=== PATIENT | male | born 1975 | race Hispanic/Latino ===

== ENCOUNTER 2024-11-25 20:12 | Emergency (ER) | payer SELFPAY ==
[2024-11-25 20:53] LABS: Absolute Eosinophils 0.2 K/uL (0-0.5); Absolute Lymphocytes (CBC) 2.3 K/uL (0.7-4.9); Absolute Monocytes 0.5 K/uL (0.1-1.3); Absolute Neutrophil 4.1 K/uL (1.8-8.0); Basophils % 0.6 % (0-1.3); Eosinophils % 2.2 % (0-4.4); Hematocrit 45.3 % (39.6-49.0); Hemoglobin 15.2 g/dL (13.6-17.9); Lymphocytes % 33.1 % (15.3-44.8); MCH 31.1 pg (27.0-35.0); MCHC 33.6 g/dL (32.0-36.0); MCV 92.5 fL (80-100); MPV 7.8 fL (7.6-11.3); Monocytes % 6.7 % (3.3-12.3); Neutrophils % 57.4 % (41.7-73.7); Nucleated Red Blood Cells % 0.1 % (0-0); Platelets 247 thou/uL (152-406); Red Cell Distribution Width 14.4 % (12.1-15.2)
[2024-11-25 20:59] LABS: PT Prothrombin Time 11.2 SECONDS (9.4-12.5)
[2024-11-25] MEDS ORDERED: KETOROLAC 30 MG/ML INJ ONE (21:04)
[2024-11-25] MEDS ORDERED: DIPHENHYDRAMINE 50 MG/ML VIAL ONE (21:04)
[2024-11-25] MEDS ORDERED: METOCLOPRAMIDE 10 MG/2mL INJ ONE (21:04)
[2024-11-25] MEDS ORDERED: MORPHINE 4 MG/ML SYR ONE (21:04)
--- NOTE | 2024-11-25 21:13 | RAD REPORT ---
EXAMINATION: ONE VIEW CHEST XR CLINICAL INDICATION: CHEST PAIN TECHNIQUE: Frontal chest projection is submitted. Examination is limited by patient positioning and t echnique. COMPARISON: No prior exam. FINDINGS: The lungs are well inflated and clear. The heart is normal in size. No displaced fractures identified . IMPRESSION: No acute intrathoracic abnormalities.
[2024-11-25 21:24] LABS: ALT/SGPT 65 U/L (16-61); AST/SGOT 23 U/L (15-37); Albumin 3.5 g/dL (3.4-5.0); Albumin/Globulin Ratio 1.1 (1.1-1.8); Alkaline Phosphatase 68 U/L (45-117); Anion Gap 7.9 mEq/L (5.0-15.0); BUN Blood Urea Nitrogen 17 mg/dL (7-18); Bicarbonate 26 mEq/L (21-32); Bilirubin Total 0.3 mg/dL (0.2-1.0); Globulin 3.3 g/dL (2.3-3.5); Glomerular Filtration Rate 101 ml/min (=/>90); Glucose Level 112 mg/dL (74-106); Magnesium 2.4 mg/dL (1.6-2.4); NT PRO-BNP 8 pg/mL (<125); Potassium 3.9 mEq/L (3.5-5.1); Protein, Total 6.8 g/dL (6.4-8.2); Sodium Level 138 mEq/L (136-145); Troponin High Sensitivity 10.2 pg/mL (<58.9)
[2024-11-25 21:43] LABS: Bilirubin Direct < 0.2 mg/dL (0-0.2); Bilirubin Indirect, Calculated 0.1 mg/dL (0.2-0.8)
--- NOTE | 2024-11-25 21:48 | RAD REPORT ---
EXAMINATION: MRI BRAIN WITHOUT CONTRAST CLINICAL INDICATION: DIZZINESS TECHNIQUE: Multiplanar multisequence MR images of the brain were obtained without intravenous contras t. Unless otherwise specified, incidental findings do not require dedicated imaging follow-up. COMPARISON: No prior exam. FINDINGS: INTRACRANIAL: Diffusion-weighted images show no acute or early subacute infarction. No abnormal brain parenchymal signal. The ventricles are normal in size and morphology. No augmented susceptibility. There is no mass effect or midline shift. No abnormal extraaxial fluid collection. VASCULATURE: Normal signal voids in the larger intracranial arteries and dural venous sinuses. SINUSES: 2 cm mucous retention cyst or polyp inferior right maxillary antrum. BONE: The marrow signal pattern is within normal limits. IMPRESSION: Negative for acutre CVA or other acute intracranial finding.
[2024-11-25] MEDS ORDERED: NA CHLORIDE 0.9% 1,000 ML ONE (22:03)
[2024-11-25] MEDS ORDERED: ACETAMINOPHEN 500 MG TAB ONE (22:03)
--- NOTE | 2024-11-26 00:33 | ER ---
Nurse's Notes [facility] Name: Kaushik Villalpando Age: 49 yrs Sex: Male : 1975 Arrival Date: 11/25/2024 Time: 20:12 Bed 15 Private MD: Diagnosis: Complicated headache syndromes;Elevated Blood pressure reading Presentation: 11/25 20:24 Chief complaint: Patient states: I am having headache and, numbness, weakness, and jb4 tingling of both arms and legs. It is worse in the right arm. It all started at 4am on 11/24. Coronavirus screen: At this time, the client does not indicate any symptoms associated with coronavirus-19. Ebola Screen: No symptoms or risks identified at this time. Initial Sepsis Screen: Does the patient meet any 2 criteria? No. Patient's initial sepsis screen is negative. Does the patient have a suspected source of infection? No. Patient's initial sepsis screen is negative. Risk Assessment: Do you want to hurt yourself or someone else? Patient reports no desire to harm self or others. Onset of symptoms was November 24, 2024. Transition of care: patient was not received from another setting of care. 20:24 Method Of Arrival: Ambulatory jb4 20:24 Acuity: JACOB 2 jb4 Historical: - Allergies: 20:26 No Known Allergies; jb4 - PMHx: 20:26 None; jb4 - PSHx: 20:26 None; jb4 - Immunization history:: Adult Immunizations not up to date. - Infectious Disease History:: Denies. - Social history:: Smoking status: Patient denies any tobacco usage or history of. Patient uses alcohol, occasionally. - Family history:: not pertinent. Screenin:45 [facility] ED Fall Risk Assessment (Adult) History of falling in the last 3 months, rg5 including since admission No falls in past 3 months (0 pts) Confusion or Disorientation No (0 pts) Intoxicated or Sedated No (0 pts) Impaired Gait No (0 pts) Mobility Assist Device Used No (0 pt) Altered Elimination No (0 pt) Score/Fall Risk Level 0 - 2 = Low Risk Oriented to surroundings, Maintained a safe environment, Hourly rounding (assess needs \T\ fall precautionary measures) done. 20:45 Abuse screen: Denies threats or abuse. Nutritional screening: No deficits noted. rg5 Tuberculosis screening: No symptoms or risk factors identified. Assessment: 20:45 General: Appears in no apparent distress. comfortable, Behavior is calm, cooperative, rg5 appropriate for age. 20:45 Pain: Complains of pain in head Pain does not radiate. Pain currently is 9 out of 10 on rg5 a pain scale. Quality of pain is described as aching, Pain began 2-3 days ago. Neuro: Reports blurred vision dizziness. Cardiovascular: Denies chest pain. Respiratory: Airway is patent Trachea midline Respiratory effort is even, unlabored, Respiratory pattern is regular, symmetrical. GI: Abdomen is round non-distended, Abd is soft and non tender. : No signs and/or symptoms were reported regarding the genitourinary system. EENT: Reports blurred vision. Derm: Skin is intact, Skin is dry, Skin is normal, Skin temperature is warm. Musculoskeletal: Circulation, motion, and sensation intact. Range of motion: intact in all extremities, Reports weakness in right arm and right leg. 21:35 Reassessment: No changes from previously documented assessment. Patient and/or family rg5 updated on plan of care and expected duration. Pain level reassessed. Patient is alert, oriented x 3, equal unlabored respirations, skin warm/dry/pink. 22:30 Reassessment: Patient and/or family updated on plan of care and expected duration. Pain rg5 level reassessed. Patient is alert, oriented x 3, equal unlabored respirations, skin warm/dry/pink. 23:25 Reassessment: Patient and/or family updated on plan of care and expected duration. Pain rg5 level reassessed. Patient is alert, oriented x 3, equal unlabored respirations, skin warm/dry/pink. Patient states feeling better. Patient states symptoms have improved. 11/26 00:30 Reassessment: Patient and/or family updated on plan of care and expected duration. Pain rg5 level reassessed. Patient is alert, oriented x 3, equal unlabored respirations, skin warm/dry/pink. Patient states feeling better. Patient states symptoms have improved. Vital Signs: 11/25 20:24 Weight 99.79 kg; Height 5 ft. 8 in. ; Pain 10/10; jb4 20:33 BP 157 / 100; Pulse 58; Resp 18; Temp 98.3; Pulse Ox 97% on R/A; Weight 95.71 kg; rg5 Height 5 ft. 8 in. ; Pain 8/10; 21:41 BP 136 / 89; Pulse 63; Resp 17; Pulse Ox 99% on R/A; Pain 9/10; rg5 22:00 BP 111 / 80; Pulse 60; Resp 17; Pulse Ox 96% on R/A; Pain 3/10; rg5 23:00 BP 115 / 80; Pulse 57; Resp 18; Pulse Ox 98% ; Pain 3/10; rg5 11/26 00:27 BP 116 / 80; Pulse 55; Resp 18; Pulse Ox 98% on R/A; Pain 0/10; rg5 11/25 20:33 Body Mass Index 32.08 (95.71 kg, 172.72 cm) rg5 11/25 20:24 Pain Scale: Adult jb4 20:33 Pain Scale: Adult rg5 21:41 Pain Scale: Adult rg5 22:00 Pain Scale: Adult rg5 23:00 Pain Scale: Adult rg5 11/26 00:27 Pain Scale: Adult rg5 Durant Coma Score: 11/25 22:21 Eye Response: spontaneous(4). Motor Response: obeys commands(6). Verbal Response: sp4 oriented(5). Total: 15. NIH Stroke Scale Scores: 21:29 NIHSS Score: 0 sp4 ED Course: 20:14 Patient arrived in ED. jj6 20:16 Jorge Conner, RN is Primary Nurse. rg5 20:18 Bob French MD is Attending Physician. sp4 20:26 Triage completed. jb4 20:26 Arm band placed on right wrist. jb4 20:37 EKG done, by ED staff, reviewed by Bob French MD. oe 20:45 Patient has correct armband on for positive identification. Placed in gown. Bed in low rg5 position. Call light in reach. Side rails up X 1. Client placed on continuous cardiac and pulse oximetry monitoring. NIBP monitoring applied. translator and interpreter on. Pulse ox on. Door closed. Noise minimized. Warm blanket given. Verbal reassurance given. 20:45 No provider procedures requiring assistance completed. Inserted saline lock: 20 gauge rg5 in right antecubital area, using aseptic technique. Blood collected. Flushed with 10 mL NS. Patient maintains SpO2 saturation greater than 95% on room air. 21:08 XRAY Chest (1 view) In Process Unspecified. EDMS 21:29 MRI - Brain Wo Cont In Process Unspecified. EDMS 11/26 00:32 Misael Carbajal MD is Referral Physician. sp4 00:46 Provided Education on: post er care. rg5 00:46 IV discontinued, bleeding controlled, No redness/swelling at site. Pressure dressing rg5 applied. Administered Medications: 11/25 21:40 Drug: metoCLOPramide IVP 10 mg IVP once; over 1 to 2 minutes Route: IVP; Site: right rg5 antecubital; 22:03 Follow up: Response: No adverse reaction; Pain is decreased rg5 21:40 Drug: Ketorolac IVP 30 mg IVP once Route: IVP; Site: right antecubital; rg5 22:03 Follow up: Response: No adverse reaction; Pain is decreased rg5 21:40 Drug: diphenhydrAMINE IVP 25 mg IVP once Route: IVP; Site: right antecubital; rg5 22:03 Follow up: Response: No adverse reaction rg5 21:41 Drug: morphine IVP or IV 4 mg IVP once over 4 mins Route: IVP; Infused Over: 4 mins; rg5 Site: right antecubital; 22:03 Follow up: Response: No adverse reaction; Pain is decreased rg5 22:10 Drug: NS 0.9% IV 1000 ml IV at 1000 ml once; to be given as a bolus over 60 minutes rg5 Route: IV; Rate: 1000 ml; Site: right antecubital; 11/26 00:00 Follow up: IV Status: Completed infusion; IV Intake: 1000ml rg5 11/25 22:10 Drug: Acetaminophen PO 1000 mg PO once Route: PO; rg5 22:39 Follow up: Response: No adverse reaction; Pain is decreased rg5 Medication: 20:45 VIS not applicable for this client. rg5 Intake: 11/26 00:00 IV: 1000ml; Total: 1000ml. rg5 Outcome: 00:33 Discharge ordered by . sp4 00:52 Discharged to home ambulatory, rg5 00:52 Condition: stable 00:52 Discharge instructions given to patient, Instructed on discharge instructions, follow up and referral plans. Demonstrated understanding of instructions, follow-up care, medications, Prescriptions given X 1, 00:52 Patient left the ED. rg5 NIH Stroke Scale - NIH Stroke Score Date: 11/25/2024 Time: 21:29 Total Score = 0 10. Dysarthria (speech clarity - read or repeat words) - 0(Normal) 11. Extinction and Inattention (visual/tactile/auditory/spatial/personal) - 0(No abnormality) 1a. Level of Consciousness (LOC) - 0(Alert) 1b. Level of Consciousness (LOC) (Month \T\ Age) - 0(Both) 1c. LOC Commands (Open \T\ Closes Eyes/Vehicle Body Builder) - 0(Both) 2. Best Gaze (Lateral Gaze Paresis) - 0(Normal) 3. Visual Field Loss - 0(No visual loss) 4. Facial Palsy - 0(Normal) 5a. Left Arm: Motor (10-second hold) - 0(No drift) 5b. Right Arm: Motor (10-second hold) - 0(No drift) 6a. Left Leg: Motor (5-second hold - always test supine) - 0(No drift) 6b. Right Leg: Motor (5-second hold - always test supine) - 0(No drift) 7. Limb Ataxia (finger/nose \T\ heel/lopez - test with eyes open) - 0(Absent) 8. Sensory Loss (pinprick arms/legs/face) - 0(Normal) 9. Best Language: Aphasia (description/naming/reading) - 0(No aphasia) Initials: sp4 Signatures: Dispatcher [employer] EDMS Devonte Marie, RN RN jb4 Robert Moreno Jennifer jj6 Bob French MD MD sp4 Jorge Conner RN RN rg5
--- NOTE | 2024-11-26 00:34 | EDPHYS ---
Physician Documentation [facility] Name: Kaushik Villalpando Age: 49 yrs Sex: Male : 1975 Arrival Date: 11/25/2024 Time: 20:12 Bed 15 Private MD: ED Physician Bob French HPI: 11/25 20:18 This 49 yrs old Male presents to ER via Unassigned with complaints of Chest sp4 Pain, Blurred Vision, Numbness Of Arm, Headache. 22:52 Positive for acute onset headache 2 days ago. Patient reported blood pressure was high sp4 at home 170/104. Patient reported pain in her jaw blurry vision and feeling unwell overall. . Historical: - Allergies: 20:26 No Known Allergies; jb4 - PMHx: 20:26 None; jb4 - PSHx: 20:26 None; jb4 - Immunization history:: Adult Immunizations not up to date. - Infectious Disease History:: Denies. - Social history:: Smoking status: Patient denies any tobacco usage or history of. Patient uses alcohol, occasionally. - Family history:: not pertinent. ROS: 23:07 Constitutional: Negative for fever, chills, and weight loss, positive for chest pain, sp4 blurry vision, arm numbness, headache.. 23:07 All other systems are negative, Exam: 22:21 Constitutional: This is a well developed, well nourished patient who is awake, alert, sp4 and in no acute distress. Head/Face: Normocephalic, atraumatic. Eyes: Pupils equal round and reactive to light, extra-ocular motions intact. Lids and lashes normal. Conjunctiva and sclera are not injected. Cornea within normal limits. Periorbital areas with no swelling, redness, or edema. ENT: Nares patent. No nasal discharge, no septal abnormalities noted. Tympanic membranes are normal and external auditory canals are clear. Oropharynx with no redness, swelling, or masses, exudates, or evidence of obstruction, uvula midline. Mucous membranes moist. Neck: Trachea midline, no thyromegaly or masses palpated, and no cervical lymphadenopathy. Supple, full range of motion without nuchal rigidity, or vertebral point tenderness. Chest/axilla: Normal chest wall appearance and motion. Nontender with no deformity. No lesions are appreciated. Cardiovascular: Regular rate and rhythm with a normal S1 and S2. No gallops, murmurs, or rubs. Normal PMI, no JVD. No pulse deficits. Respiratory: Lungs have equal breath sounds bilaterally, clear to auscultation and percussion. No rales, rhonchi or wheezes noted. No increased work of breathing, no retractions or nasal flaring. Abdomen/GI: Soft, with normal bowel sounds. No distension or tympany. No guarding or rebound. No evidence of tenderness throughout. Back: No spinal tenderness. No costovertebral tenderness. Skin: Warm, dry with normal turgor. Normal color with no rashes, no lesions, and no evidence of cellulitis. MS/ Extremity: Pulses equal, no cyanosis. Neurovascular intact. Full, normal range of motion. Neuro: Awake and alert, GCS 15, oriented to person, place, time, and situation. Cranial nerves II-XII grossly intact. Motor strength 5/5 in all extremities. Sensory grossly intact. Psych: Awake, alert, with orientation to person, place and time. Behavior, mood, and affect are within normal limits 23:07 ECG was reviewed by the Attending Physician. EKG at 2031 normal sinus rhythm rate sp4 61. Otherwise normal. Vital Signs: 20:24 Weight 99.79 kg; Height 5 ft. 8 in. ; Pain 10/10; jb4 20:33 BP 157 / 100; Pulse 58; Resp 18; Temp 98.3; Pulse Ox 97% on R/A; Weight 95.71 kg; rg5 Height 5 ft. 8 in. ; Pain 8/10; 21:41 BP 136 / 89; Pulse 63; Resp 17; Pulse Ox 99% on R/A; Pain 9/10; rg5 22:00 BP 111 / 80; Pulse 60; Resp 17; Pulse Ox 96% on R/A; Pain 3/10; 5 23:00 BP 115 / 80; Pulse 57; Resp 18; Pulse Ox 98% ; Pain 3/10; 11/26 00:27 BP 116 / 80; Pulse 55; Resp 18; Pulse Ox 98% on R/A; Pain 0/10; [facility] 11/25 20:33 Body Mass Index 32.08 (95.71 kg, 172.72 cm) [facility] 11/25 20:24 Pain Scale: Adult jb4 20:33 Pain Scale: Adult rg5 21:41 Pain Scale: Adult rg5 22:00 Pain Scale: Adult rg5 23:00 Pain Scale: Adult rg5 11/26 00:27 Pain Scale: Adult rg5 NIH Stroke Scale Scores: 11/25 21:29 NIHSS Score: 0 sp4 Annalise Coma Score: 22:21 Eye Response: spontaneous(4). Motor Response: obeys commands(6). Verbal Response: sp4 oriented(5). Total: 15. MDM: 20:18 Medical Screening Exam initiated sp4 22:53 ED course: EXAMINATION: ONE VIEW CHEST XR CLINICAL INDICATION: CHEST PAIN TECHNIQUE: sp4 Frontal chest projection is submitted. Examination is limited by patient positioning and technique. COMPARISON: No prior exam. FINDINGS: The lungs are well inflated and clear. The heart is normal in size. No displaced fractures identified. IMPRESSION: No acute intrathoracic abnormalities.. 11/26 03:11 Differential diagnosis: acute pericarditis, anxiety, chest wall pain, esophagitis, sp4 gastritis. HEART Score: History: Slightly Suspicious (0), ECG: Normal (0), Age: > 45 and < 65 years (1), Risk Factors: No Risk Factors Known (0), Troponin: < or = 1 x Normal Limit (0), Total Score = 1. Data reviewed: vital signs, nurses notes, lab test result(s), CBC, electrolytes, hepatic panel, EKG, radiologic studies, MRI, plain films. ED course: EXAMINATION: MRI BRAIN WITHOUT CONTRAST CLINICAL INDICATION: DIZZINESS TECHNIQUE: Multiplanar multisequence MR images of the brain were obtained without intravenous contrast. Unless otherwise specified, incidental findings do not require dedicated imaging followup. COMPARISON: No prior exam. FINDINGS: INTRACRANIAL: Diffusion-weighted images show no acute or early subacute infarction. No abnormal brain parenchymal signal. The ventricles are normal in size and morphology. No augmented susceptibility. There is no mass effect or midline shift. No abnormal extraaxial fluid collection. VASCULATURE: Normal signal voids in the larger intracranial arteries and dural venous sinuses. SINUSES: 2 cm mucous retention cyst or polyp inferior right maxillary antrum. BONE: The marrow signal pattern is within normal limits. IMPRESSION: Negative for acute CVA or other acute intracranial finding. . 11/25 20:18 Order name: Basic Metabolic Panel; Complete Time: 00:25 sp4 11/25 20:18 Order name: CBC with Diff; Complete Time: 21:54 4 11/25 20:18 Order name: LFT's; Complete Time: 00:25 sp4 11/25 20:18 Order name: Magnesium; Complete Time: 00:25 sp4 11/25 20:18 Order name: NT PRO-BNP; Complete Time: 00:25 sp4 11/25 20:18 Order name: PT-INR; Complete Time: 21:54 4 11/25 20:18 Order name: Troponin HS; Complete Time: 00:25 sp4 11/25 22:44 Order name: T4 Free; Complete Time: 00:25 EDMS 11/25 22:44 Order name: Thyroid Stimulating Hormone; Complete Time: 00:25 EDMS 11/25 22:53 Order name: Troponin High Sensitivity; Complete Time: 00:25 4 11/25 20:18 Order name: XRAY Chest (1 view); Complete Time: 21:54 4 11/25 20:51 Order name: MRI - Brain Wo Cont; Complete Time: 21:54 11/25 20:18 Order name: EKG; Complete Time: 20:18 11/25 20:18 Order name: Cardiac monitoring; Complete Time: 20:38 11/25 20:18 Order name: EKG - Nurse/Tech; Complete Time: 20:38 11/25 20:18 Order name: IV Saline Lock; Complete Time: 20:44 11/25 20:18 Order name: Labs collected and sent; Complete Time: 20:44 11/25 20:18 Order name: O2 Per Protocol; Complete Time: 20:44 11/25 20:18 Order name: O2 Sat Monitoring; Complete Time: 20:44 EC/07 20:32 Rate is 61 beats/min. Rhythm is regular, Normal Sinus Rhythm. QRS [place] is Normal. VT sp4 interval is normal. QRS interval is normal. QT interval is normal. No Q waves. T waves are Normal. No ST changes noted. Clinical impression: No evidence of ischemia. Interpreted by me. Reviewed by me. Administered Medications: 21:40 Drug: metoCLOPramide IVP 10 mg IVP once; over 1 to 2 minutes Route: IVP; Site: right rg5 antecubital; 22:03 Follow up: Response: No adverse reaction; Pain is decreased rg5 21:40 Drug: Ketorolac IVP 30 mg IVP once Route: IVP; Site: right antecubital; rg5 22:03 Follow up: Response: No adverse reaction; Pain is decreased rg5 21:40 Drug: diphenhydrAMINE IVP 25 mg IVP once Route: IVP; Site: right antecubital; rg5 22:03 Follow up: Response: No adverse reaction rg5 21:41 Drug: morphine IVP or IV 4 mg IVP once over 4 mins Route: IVP; Infused Over: 4 mins; rg5 Site: right antecubital; 22:03 Follow up: Response: No adverse reaction; Pain is decreased rg5 22:10 Drug: NS 0.9% IV 1000 ml IV at 1000 ml once; to be given as a bolus over 60 minutes rg5 Route: IV; Rate: 1000 ml; Site: right antecubital; 11/26 00:00 Follow up: IV Status: Completed infusion; IV Intake: 1000ml rg5 11/25 22:10 Drug: Acetaminophen PO 1000 mg PO once Route: PO; rg5 22:39 Follow up: Response: No adverse reaction; Pain is decreased rg5 Disposition Summary: 11/26/24 00:33 Discharge Ordered Problem: new sp4 Symptoms: have improved sp4 Condition: Stable sp4 Diagnosis - Complicated headache syndromes sp4 - Elevated Blood pressure reading sp4 Followup: sp4 - With: Misael Carbajal MD - When: 7 - 10 days - Reason: Recheck today's complaints Discharge Instructions: - Discharge Summary Sheet sp4 - General Headache Without Cause, [id number] sp4 Forms: - Patient Portal Instructions sp4 Prescriptions: - Fioricet 50-300-40 mg Oral capsule - take 1 capsule ORAL route every 6 hours PRN headache; 30 capsule; Refills: 0, sp4 Product Selection Permitted NIH Stroke Scale - NIH Stroke Score Date: 11/25/2024 Time: 21:29 Total Score = 0 10. Dysarthria (speech clarity - read or repeat words) - 0(Normal) 11. Extinction and Inattention (visual/tactile/auditory/spatial/personal) - 0(No abnormality) 1a. Level of Consciousness (LOC) - 0(Alert) 1b. Level of Consciousness (LOC) (Month \T\ Age) - 0(Both) 1c. LOC Commands (Open \T\ Closes Eyes/Early Childhood Education Instructor) - 0(Both) 2. Best Gaze (Lateral Gaze Paresis) - 0(Normal) 3. Visual Field Loss - 0(No visual loss) 4. Facial Palsy - 0(Normal) 5a. Left Arm: Motor (10-second hold) - 0(No drift) 5b. Right Arm: Motor (10-second hold) - 0(No drift) 6a. Left Leg: Motor (5-second hold - always test supine) - 0(No drift) 6b. Right Leg: Motor (5-second hold - always test supine) - 0(No drift) 7. Limb Ataxia (finger/nose \T\ heel/lopez - test with eyes open) - 0(Absent) 8. Sensory Loss (pinprick arms/legs/face) - 0(Normal) 9. Best Language: Aphasia (description/naming/reading) - 0(No aphasia) Initials: sp4 Signatures: Dispatcher [employer] EDMS Devonte Marie RN RN jb4 Bob French MD MD sp4 Jorge Conner RN RN rg5 Corrections: (The following items were deleted from the chart) 22:44 22:17 THYROID STIMULAT HORMONE+C.LAB.BRZ ordered. EDMS EDMS 22:44 22:17 T4 FREE+C.LAB.BRZ ordered. EDMS EDMS
[2024-11-26 00:59] VITALS: TEMP 98.3
[2024-11-26 01:04] VITALS: O2SAT 98
[2024-11-26 01:06] VITALS: BP 116/80
--- NOTE | 2024-12-01 11:02 | EKG ---
Test Date: 2024-11-25 Test Time: 20:32:49 Recapper: SUSI MEASUREMENT RESULTS: Intervals: Rate: 61 UT: 176 QRSD: 92 QT: 418 QTc: 420 [place]: P: 52 UT: 176 QRS: 38 T: 64 INTERPRETIVE STATEMENTS: Normal sinus rhythm Incomplete right bundle branch block Nonspecific T wave abnormality Abnormal ECG No previous ECG available for comparison Electronically Signed On 12-01-24 10:54:47 MINE SURVEYOR by Edu Suárez
== END 2024-11-26 00:52 | disposition home or self-care (01) ==
LOC: ER 20:12
DX: G44.59 Other complicated headache syndrome (principal); R03.0 Elevated blood-pressure reading, without diagnosis of hypertension
CPT/HCPCS: 36415; 70551; 71045; 80048; 80076; 83735; 83880; 84439; 84443; 84484; 85025; 85610; 93005; 96361; 96374; 96375; 99285; J1200; J2765; J7030

== ENCOUNTER 2025-02-21 12:16 | Emergency (ER) | payer SELFPAY ==
--- NOTE | 2025-02-21 13:08 | RAD REPORT ---
EXAMINATION: US LEFT LOWER EXTREMITY VENOUS DOPPLER CLINICAL INDICATION: Pain;Swelling TECHNIQUE: Complete bilateral duplex sonography of the LEFT lower extremity veins was performed. The examination included compression for vein patency, color Doppler imaging and flow augmentation in response to distal compression of the distal external iliac, common femoral, femoral, popliteal, tibi al, and great and small saphenous veins. COMPARISON: No prior exam. FINDINGS: Duplex sonography testing of the veins of the LEFT lower extremity was performed. Color flow imaging shows all veins to be compressible with [id number] color filling. Pulsatile and phasic flow is present within all lower extremity deep and superficial veins examined. IMPRESSION: There is no deep vein or superficial vein thrombosis.
--- NOTE | 2025-02-21 13:45 | EDPHYS ---
Physician Documentation [facility] Name: Kaushik Villalpando Age: 49 yrs Sex: Male : 1975 Arrival Date: 02/21/2025 Time: 12:16 Bed 5 Private MD: ED Physician Mo Driscoll HPI: 02/21 13:42 This 49 yrs old Male presents to ER via Wheelchair with complaints of Leg sp3 Swelling - left. 13:42 49-year-old male with no past medical history presents with left calf pain after sp3 "trying to run". Symptoms started yesterday evening. He denies any following immobilization, prior DVT or PE, travel history or any other related symptoms. He denies headache, neck pain, chest pain, shortness of breath, back pain, abdominal pain, syncope, near syncope, bleeding, rash, or any other signs or symptoms on ROS at this time.. Historical: - Allergies: 14:14 No Known Allergies; ph - Immunization history:: Adult Immunizations unknown. - Infectious Disease History:: Denies. - Social history:: Smoking status: unknown. ROS: 13:43 Constitutional: Negative for fever, chills, and weight loss, Eyes: Negative for injury, sp3 pain, redness, and discharge, ENT: Negative for injury, pain, and discharge, Neck: Negative for injury, pain, and swelling, Cardiovascular: Negative for chest pain, palpitations, and edema, Respiratory: Negative for shortness of breath, cough, wheezing, and pleuritic chest pain, Abdomen/GI: Negative for abdominal pain, nausea, vomiting, diarrhea, and constipation, Back: Negative for injury and pain, Skin: Negative for injury, rash, and discoloration, Neuro: Negative for headache, weakness, numbness, tingling, and seizure, Psych: Negative for depression, anxiety, suicide ideation, homicidal ideation, and hallucinations, Allergy/Immunology: Negative for hives, rash, and allergies, Endocrine: Negative for neck swelling, polydipsia, polyuria, polyphagia, and marked weight changes, Hematologic/Lymphatic: Negative for swollen nodes, abnormal bleeding, and unusual bruising, 13:43 All other systems are negative, Exam: 13:43 Constitutional: This is a well developed, well nourished patient who is awake, alert, sp3 and in no acute distress. Head/Face: Normocephalic, atraumatic. Chest/axilla: Normal chest wall appearance and motion. Nontender with no deformity. No lesions are appreciated. Cardiovascular: Regular rate and rhythm with a normal S1 and S2. No gallops, murmurs, or rubs. Normal PMI, no JVD. No pulse deficits. Respiratory: Lungs have equal breath sounds bilaterally, clear to auscultation and percussion. No rales, rhonchi or wheezes noted. No increased work of breathing, no retractions or nasal flaring. Abdomen/GI: Soft, non-tender, with normal bowel sounds. No distension or tympany. No guarding or rebound. No evidence of tenderness throughout. Skin: Warm, dry with normal turgor. Normal color with no rashes, no lesions, and no evidence of cellulitis. Neuro: Awake and alert, GCS 15, oriented to person, place, time, and situation. Cranial nerves II-XII grossly intact. Motor strength 5/5 in all extremities. Sensory grossly intact. Cerebellar exam normal. Normal gait. 13:43 Musculoskeletal/extremity: Calf pain on the left side with mild swelling and painful to palpation. Distal neurovascular exam is normal. No pedal edema noted.. Vital Signs: 13:39 BP 148 / 91; Pulse 54; Resp 16; Pulse Ox 97% on R/A; Pain 9/10; zm 13:39 Pain Scale: Adult zm MDM: 12:55 Medical Screening Exam initiated sp3 13:43 Data reviewed: vital signs, nurses notes, radiologic studies. ED course: 49-year-old sp3 male with left calf pain after trying to run. Differential diagnosis includes muscle tear, muscle strain, DVT. Ultrasound demonstrates no DVT or other abnormality. Will place patient on NSAID and discharged home.. 02/21 12:29 Order name: US Extremity Venous Unilateral Ltd; Complete Time: 13:09 sp3 Administered Medications: No medications were administered Disposition Summary: 02/21/25 13:44 Discharge Ordered Notes: Location: Home sp3 Condition: Stable sp3 Diagnosis - Muscle strain left calf sp3 Followup: sp3 - With: Private Physician - When: Upon discharge from the Emergency Department - Reason: Recheck today's complaints, Continuance of care Discharge Instructions: - Discharge Summary Sheet sp3 - Muscle Strain sp3 Forms: - Medication Reconciliation Form sp3 - Antibiotic Education sp3 - Prescription Opioid Use sp3 - Patient Portal Instructions sp3 - Leadership Thank You Letter sp3 Prescriptions: - Diclofenac Sodium 75 mg Oral Tablet Sustained Release - take 1 tablet ORAL route 2 times per day; 30 tablet; Refills: 0, Product sp3 Selection Permitted - Tramadol 50 mg Oral Tablet - take 1 tablet ORAL route every 8 hours as needed; 12 tablet; Refills: 0, sp3 Product Selection Permitted Signatures: Dispatcher [employer] Ciara Garcia RN RN Mo Mar MD MD sp3
--- NOTE | 2025-02-21 13:45 | ER ---
Nurse's Notes [facility] Name: Kaushik Villalpando Age: 49 yrs Sex: Male : 1975 Arrival Date: 02/21/2025 Time: 12:16 Bed 5 Private MD: Diagnosis: Muscle strain left calf Presentation: 02/21 12:51 Chief complaint: Patient states: pain behind left calf started this morning , swelling iw to left leg from knee down. Coronavirus screen: At this time, the client does not indicate any symptoms associated with coronavirus-19. Ebola Screen: No symptoms or risks identified at this time. Initial Sepsis Screen: Does the patient meet any 2 criteria? No. Patient's initial sepsis screen is negative. Does the patient have a suspected source of infection?. Risk Assessment: Do you want to hurt yourself or someone else? Patient reports no desire to harm self or others. Onset of symptoms was February 21, 2025. 12:51 Method Of Arrival: Wheelchair iw 12:51 Acuity: JACOB 3 iw Historical: - Allergies: 14:14 No Known Allergies; ph - Immunization history:: Adult Immunizations unknown. - Infectious Disease History:: Denies. - Social history:: Smoking status: unknown. Screenin:14 [facility] ED Fall Risk Assessment (Adult) History of falling in the last 3 months, ph including since admission No falls in past 3 months (0 pts) Confusion or Disorientation No (0 pts) Intoxicated or Sedated No (0 pts) Impaired Gait Yes (1 pt) Mobility Assist Device Used No (0 pt) Altered Elimination No (0 pt) Score/Fall Risk Level 0 - 2 = Low Risk Oriented to surroundings, Maintained a safe environment, Hourly rounding (assess needs \T\ fall precautionary measures) done. Abuse screen: Denies threats or abuse. Denies injuries from another. Nutritional screening: No deficits noted. Tuberculosis screening: No symptoms or risk factors identified. Assessment: 14:15 General: Appears in no apparent distress. comfortable, Behavior is calm, cooperative. ph Pain: Complains of pain in left leg. Neuro: Level of Consciousness is awake, alert, obeys commands, Oriented to person, place, time, situation. Cardiovascular: Pulses are palpable in right dorsalis pedis artery and left dorsalis pedis artery. Derm: Skin is pink, warm \T\ dry. Musculoskeletal: Circulation, motion, and sensation intact. Range of motion: intact in all extremities. Vital Signs: 13:39 BP 148 / 91; Pulse 54; Resp 16; Pulse Ox 97% on R/A; Pain 9/10; zm 13:39 Pain Scale: Adult zm ED Course: 12:18 Patient arrived in ED. im 12:21 Mo Driscoll MD is Attending Physician. sp3 12:52 Triage completed. iw 13:05 US Extremity Venous Unilateral Ltd In Process Unspecified. EDMS 14:14 Ciara Mckeon, RN is Primary Nurse. ph 14:15 Patient has correct armband on for positive identification. Bed in low position. Call ph light in reach. Side rails up X 1. Pulse ox on. NIBP on. 14:15 Arm band placed on. ph Administered Medications: No medications were administered Medication: 14:14 VIS not applicable for this client. ph Outcome: 13:44 Discharge ordered by . sp3 14:15 Patient left the ED. iw Signatures: Dispatcher [employer] EDIN Mila Royal, RN RN iw Ciara Mckeon, RN RN Mo Driscoll MD MD sp3 Jenny Maldonado Itzel im
[2025-02-21 14:20] VITALS: BP 148/91; O2SAT 97
== END 2025-02-21 14:15 | disposition home or self-care (01) ==
LOC: ER 12:16
DX: S86.912A Strain of unspecified muscle(s) and tendon(s) at lower leg level, left leg, initial encounter (principal)
CPT/HCPCS: 93971; 99282